=== PATIENT | female | born 1950 | race Asian ===

== ENCOUNTER → 2021-02-11 | Outpatient (CLI) | payer BC | LOC: MRI 09:05 | PROVIDERS: ATTEND Internal Medicine | DX: M54.40 Lumbago with sciatica, unspecified side (principal) | CPT/HCPCS: 72146; 72148 ==

== ENCOUNTER → 2021-04-25 | Outpatient (CLI) | payer MEDICARE | LOC: MRI 07:56 | PROVIDERS: ATTEND Internal Medicine | DX: M54.16 Radiculopathy, lumbar region (principal) | CPT/HCPCS: 72148 ==

== ENCOUNTER → 2022-03-01 | Outpatient (CLI) | payer MEDICARE | LOC: MRI 07:42 | PROVIDERS: ATTEND Internal Medicine | DX: M54.31 Sciatica, right side (principal) | CPT/HCPCS: 72148 ==